=== PATIENT | male | born 1965 ===

== ENCOUNTER 2019-02-12 05:45 | Day surgery (SDC) | payer OTHER ==
[2019-02-12] VITALS (9 sets, daily range): BP systolic 109–134; BP diastolic 58–83
[~2019-02-12] VITALS: Ht 175.3 cm; Wt 113.4 kg
[2019-02-12] MEDS ORDERED: oxyCONTIN 20mg tab ORAL ONE (06:00)
[2019-02-12] MEDS ORDERED: celeBREX 200mg Cap **SURGERY PATIENTS ONLY ORAL ONE (06:00)
[2019-02-12] MEDS ORDERED: ceFAZolin 1gm IVPB IVPB ONE ×2 (06:00)
[2019-02-12] MEDS ORDERED: HYDROCHLOROTHIA25 MG ORAL (06:27)
[2019-02-12] MEDS ORDERED: ATENOLOL50 MG ORAL (06:27)
[2019-02-12] MEDS ORDERED: METFORMIN HCL500 M1 ORAL (06:27)
[2019-02-12] MEDS ORDERED: LISINOPRIL20 MG ORAL (06:27)
[2019-02-12] MEDS ORDERED: ASPIR 8181 MG ORAL (06:27)
[2019-02-12] MEDS ORDERED: NORVASC5 MG ORAL (06:27)
[2019-02-12] MEDS ORDERED: GLIPIZIDE5 MG ORAL (06:27)
[2019-02-12] MEDS ORDERED: Sodium Chloride 10ml vial INJ ONE (07:27)
[2019-02-12] MEDS ORDERED: Lidocaine 1% MPF 10mg/ml 5ml ONE (07:27)
[2019-02-12] MEDS ORDERED: Midazolam 2mg/2ml Inj ONE (07:29)
--- NOTE | 2019-02-12 07:29 | Pre-Procedure Note/Attestation ---
Pre-Procedure Note/Attestation Complete Prior to Procedure Planned Procedure: left Procedure Narrative: knee arthroscopy, medial mensectomy Indications for Procedure Pre-Operative Diagnosis: left knee internal derangement Attestation I attest that I discussed the nature of the procedure; its benefits; risks and complications; and alternatives (and the risks and benefits of such alternatives ), prior to the procedure, with the patient (or the patient's legal consumer sales representative). I attest that, if there was a reasonable possibility of needing a blood transfusion, the patient (or the patient's legal consumer sales representative) was given the [facility] standardized written summary, pursuant to the [employer] Blood Safety Act ([place] Health and Safety Code # 1645, as amended). I attest that I re-evaluated the patient just prior to the surgery and that there has been no change in the patient's H&P, except as documented below: Den Brumfield MD Feb 12, 2019 07:29
[2019-02-12] MEDS ORDERED: Tylenol #3 tab (300mg/30mg) ORAL PRN (07:30)
[2019-02-12] MEDS ORDERED: LR 1000ml ONE (07:30)
[2019-02-12] MEDS ORDERED: D5 1/2NS 1,000 ML IV SCH (07:30)
[2019-02-12] MEDS ORDERED: HYDROmorphone 1mg/ml Carpuject SUBQ PRN (07:30)
[2019-02-12] MEDS ORDERED: NS Irrig 4000ml IRRIG ONE (07:30)
[2019-02-12] MEDS ORDERED: HYDROcodone/Acetamin 5/325 tab ORAL PRN ×2 (07:30→07:45)
[2019-02-12] MEDS ORDERED: Alfentanil 2ml Inj ONE (07:30)
--- NOTE | 2019-02-12 07:30 | Operative Note - PDOC ---
Operative Note Operative Note Pre-op Diagnosis: left knee internal derangement Procedure: see op report Post-op Diagnosis: same as pre-op plus Operative Findings: consistent w/pre-op dx studies Anesthesia: MAC Specimen: none Complications: none Condition: stable Estimated Blood Loss: none Implant(s) used?: No Den Brumfield MD Feb 12, 2019 07:30
[2019-02-12] MEDS ORDERED: LR 1000ml 1,000 ML IVLG SCH (07:32)
[2019-02-12] MEDS ORDERED: Lidocaine 1% 10mg/ml/Epi 0.005mg/ml 30ml vial INJ ONE (07:33)
[2019-02-12] MEDS ORDERED: Kenalog-40 1ml Vial ONE (07:33)
[2019-02-12] MEDS ORDERED: Bupivacaine 0.25% Inj 30ml INJ ONE (07:33)
[2019-02-12] MEDS ORDERED: Morphine Sulfate PF 10 ML ONE (07:33)
[2019-02-12] MEDS ORDERED: Bupivacaine w/Epi 0.25% 30ml Vial INJ ONE (07:34)
[2019-02-12] MEDS ORDERED: Ketorolac 30mg Inj IV PRN ×2 (07:45)
[2019-02-12] MEDS ORDERED: HYDROcodone/Acetamin 7.5/325 tab ORAL PRN (07:45)
[2019-02-12] MEDS ORDERED: Metoclopramide 10mg/2ml Inj IVP PRN (07:45)
[2019-02-12] MEDS ORDERED: Midazolam 2mg/2ml Inj IVP PRN (07:45)
[2019-02-12] MEDS ORDERED: Atropine Sulfate 0.4mg/ml inj IVP PRN (07:45)
[2019-02-12] MEDS ORDERED: Labetalol 5mg/ml 20ml vial IV PRN (07:45)
[2019-02-12] MEDS ORDERED: Acetaminophen (Non formulary) 100 ML IV ONE (07:45)
[2019-02-12] MEDS ORDERED: Hydromorphone 0.5mg/0.5ml inj IVP PRN (07:45)
[2019-02-12] MEDS ORDERED: DiphenhydrAMINE 50mg/ml Inj IVP PRN (07:45)
[2019-02-12] MEDS ORDERED: LORazepam Inj 2mg/ml 1ml IV PRN (07:45)
[2019-02-12] MEDS ORDERED: fentaNYL 100 mcg/2 mL IV PRN (07:45)
[2019-02-12] MEDS ORDERED: Meperidine 50mg/ml Inj(FOR RIGORS ONLY) IVP PRN (07:45)
[2019-02-12] MEDS ORDERED: oxyCODONE HCL/Acetaminophen 5/325mg ORAL PRN (07:45)
[2019-02-12] MEDS ORDERED: Ketorolac 30mg Inj IM ONE (08:02)
[2019-02-12] MEDS ORDERED: Duramorph PF 10mg/10ml amp EPIDUR ONE (08:02)
--- NOTE | 2019-02-12 08:13 | Anethesia Preoperative Eval ---
Anesthesia Pre-op PMH/ROS General Date of Evaluation: Feb 12, 2019 Time of Evaluation: 07:26 Anesthesiologist: Manuelito ASA Score: ASA 3 Mallampati Score Class I : Soft palate, uvula, fauces, pillars visible Class II: Soft palate, uvula, fauces visible Class III: Soft palate, base of uvula visible Class IV: Only hard plate visible Mallampati Classification: Class III Surgeon: Octaviano Diagnosis: L Knee Pain Surgical Procedure: L Knee Arthroscopy Anesthesia History: none Family History: no anesthesia problems Allergies: Coded Allergies: No Known Allergies (Unverified , 02/12/19) Medications: see eMAR Patient NPO?: Yes Past Medical History Cardiovascular: Reports: HTN Endocrine: Reports: DM Other: obesity - BMI 39 Anesthesia Pre-op Phys. Exam Physician Exam Last Vital Signs Date Time Temp Pulse Resp B/P (MAP) Pulse Ox O2 Delivery O2 Flow Rate FiO2 02/12/19 06:27 Room Air 02/12/19 06:24 98.2 69 18 134/83 97 Constitutional: NAD Neurologic: CN 2-12 intact Cardiovascular: RRR Respiratory: CTA Gastrointestinal: S/NT/ND Airway Exam Mallampati Score: Class III MO: limited ROM: limited Teeth: missing, intact Anesthesia Pre-op A/P Risk Assessment & Plan Assessment: ASA 3 Plan: GA, SED Status Change Before Surgery: No Pre-Antibiotics Dru grams Ancef IV Given Within 1 Hr of Incision: Yes Time Given: 07:51 Ousmane Billings MD Feb 12, 2019 08:13
--- NOTE | 2019-02-12 08:15 | Immediate Post-Op Evaluation ---
Immediate Post-Op Evalulation Immediate Post-Op Evalulation Procedure: L Knee Athroscopy Date of Evaluation: Feb 12, 2019 Time of Evaluation: 08:44 IV Fluids: 1000 LR Blood Products: 0 Estimated Blood Loss: 10 Urinary Output: 0 Blood Pressure Systolic: 124 Blood Pressure Diastolic: 80 Pulse Rate: 81 Respiratory Rate: 16 O2 Sat by Pulse Oximetry: 100 Temperature (Fahrenheit): 99 Pain Score (1-10): 2 Nausea: No Vomiting: No Complications 0 Patient Status: awake, reacts, patent, extubated, none Hydration Status: adequate Dru Grams Ancef IV Given Within 1 Hr of Incision: Yes Time Given: 07:51 Ousmane Billings MD Feb 12, 2019 08:15
--- NOTE | 2019-02-12 08:16 | 48 Hour Post Anesthesia Eval ---
Post Anesthesia Evaluation Procedure: L Knee Athroscopy Date of Evaluation: Feb 12, 2019 Time of Evaluation: 10:54 Blood Pressure Systolic: 132 0: 78 Pulse Rate: 79 Respiratory Rate: 18 Temperature (Fahrenheit): 98 O2 Sat by Pulse Oximetry: 100 Airway: patent Nausea: No Vomiting: No Pain Intensity: 2 Hydration Status: adequate Cardiopulmonary Status: Stable Mental Status/LOC: patient returned to baseline Follow-up Care/Observations: 0 Post-Anesthesia Complications: 0 Follow-up care needed: ready to discharge Ousmane Billings MD Feb 12, 2019 08:16
--- NOTE | 2019-02-12 16:15 | Operative Note - Dictated ---
DATE OF OPERATION: 02/12/2019 PREOPERATIVE DIAGNOSIS: Left knee internal derangement and possible medial meniscal tear. POSTOPERATIVE DIAGNOSES: 1. Left knee medial meniscus tear. 2. Hypertrophic synovial tissue and fat pad, medial and lateral patellofemoral compartment. PROCEDURES: 1. Left knee arthroscopic partial medial meniscectomy. 2. Synovectomy, medial and lateral patellofemoral compartment. SURGEON: Den Brumfield M.D. ANESTHESIA: MAC. INDICATION FOR PROCEDURE: The patient is a pleasant gentleman, who has had progressive left knee pain. He failed conservative treatment, elected to undergo left knee arthroscopic medial meniscectomy. Risks, limitations, expectations, and complications of the procedure were discussed in detail including continued pain, need for future surgery, risk of anesthesia, medical complications, DVT, PE, and mortality risks. All questions were addressed. DESCRIPTION OF PROCEDURE: After informed consent was obtained, the patient was brought to the operating room. The patient was placed under general anesthesia. Left leg was prepped and draped in a sterile manner. Time-out was performed. Ancef was administered. Esmarch was used to exsanguinate the extremity. Inferolateral stab incision was then made. Trocar was introduced into the knee joint. There was hypertrophic synovial tissue in patellofemoral compartment, particularly medially. Medial gutter was entered and free of any loose bodies. Medial compartment was entered. There was fraying of the posterior horn of middle body of the meniscus, it seemed to be undersurface tear. Partial medial meniscectomy using a shaver was performed. Once that was done, excision of the fat pad and synovial tissue in the anterior compartment was performed to better visualize the anterior horn of the medial meniscus. This was extended into the intercondylar notch to visualize AC and lateral compartment. The ACL was probed, noted to be intact. Lateral compartment was entered and free of meniscal chondral damage. Camera was then repositioned in the patellofemoral compartment, excision of the fat pad was completed. Once that was done, the instruments were removed. Portal sites were closed using 3-0 Monocryl sutures and Steri-Strips. The patient was awoken and taken to recovery room with stable vital signs. ESTIMATED BLOOD LOSS: Minimal. COMPLICATIONS: None. SPECIMENS: None. Den Brumfield M.D. DR: BENI JOB#: [id number] CC:
== END 2019-02-12 07:50 | disposition home or self-care (01) ==
LOC: SUR 05:45
DX: S83.242A Other tear of medial meniscus, current injury, left knee, initial encounter (principal); M67.262 Synovial hypertrophy, not elsewhere classified, left lower leg; I10 Essential (primary) hypertension; E11.9 Type 2 diabetes mellitus without complications; E66.9 Obesity, unspecified; Z68.36 Body mass index [BMI] 36.0-36.9, adult; X58.XXXA Exposure to other specified factors, initial encounter; Y92.9 Unspecified place or not applicable
CPT/HCPCS: 29876; 29881; 82962; J0690; J1885; J2250; J2274; J2405; J3301; J3490; 94003; 94150